=== PATIENT | female | born 1980 | race Caucasian/White ===

== ENCOUNTER → 2024-04-27 16:03 | Outpatient (REF) | payer BC, SELFPAY | LOC: RAD 16:03 | PROVIDERS: ATTENDING PHYSICIAN Podiatrist Foot & Ankle Surgery; FAMILY PHYSICIAN Nurse Practitioner Family | DX: M84.374A Stress fracture, right foot, initial encounter for fracture (principal) | CPT/HCPCS: 73630 ==

== ENCOUNTER 2025-04-22 04:28 | Emergency (ER) | payer BC, SELFPAY ==
[2025-04-22 04:32] VITALS: BP 139/82
--- NOTE | 2025-04-22 05:40 | ED.GENMED ---
History of Present Illness
General
Chief Complaint: Musculo-Skeletal Complaint
Source: patient
Time Seen by Provider: 04/22/25 05:09
History of Present Illness
History of Present Illness:
44-year-old female presents emergency room complaining of left-sided buttock pain. Patient began exercising with a personal secretary. She was doing exercises following some squats and kettle bells and began having pain in her left buttock. No
numbness or tingling in her lower extremity. No bowel or bladder dysfunction. Pain is not significant when she is laying or sitting and remaining still. But however when she has been still for some period of time and then begins moving again the
pain is most severe. After she 'loosens up' the pain lessened somewhat. No relief with ibuprofen, Tylenol and a lidocaine patch. Patient is in a wedding today and is concerned about her ability to function there with this pain. Patient denies
any abdominal pain. She denies any fever or chills. Patient is not concerned that she is as has been determined that she is not capable of getting .
Past History
Past History
ED Past Medical History: GERD
ED Past Surgical History: Appendectomy
Social History
Tobacco: Smoker
Alcohol: None
Drug: None
Personal:
Living: with family
Employment: Employed
Phy Exam
Physical Exam
Physical Exam:
General: Awake, Alert, Oriented X3. No acute distress. High BMI
Vitals: unremarkable
Head: Atraumatic
Eyes: Pupils equal, EOMI
Throat: Airway intact, no exudates
Neck: Trachea midline
Lungs: Clear and equal b/l
Heart: Regular rate, no murmurs
Abd: Soft, Nontender, No pulsatile mass
Back: No pain to percussion over the thoracic or lumbar spine. No pain to palpation of the paraspinal musculature. Positive pain to palpation over the left buttock
Neuro: Nonfocal
Skin: Warm, dry, no rash
Extremities: pulses equal b/l, no edema
Course
Orders/Labs/Results
Orders:
Orders
04/22/25 05:37
Cyclobenzaprine HCl [Flexeril] 10 mg PO NOW STA
Hip, Left 2-3 Views [CR Hip - LT w/wo Pel 2-3 Vw*] Urgent
Comment:
Reason For Exam: left hip pain
Include a pelvis x-ray?: Yes
Vital Signs
Initial and Last Documented VS:
Initial Vital Signs
Temp Pulse Resp BP Pulse Ox
98.5 F 86 20 139/82 100
04/22/25 04:32 04/22/25 04:32 04/22/25 04:32 04/22/25 04:32 04/22/25 04:32
Last Documented Vital Signs
Temp Pulse Resp BP Pulse Ox
98.5 F 86 20 139/82 100
04/22/25 04:32 04/22/25 04:32 04/22/25 04:32 04/22/25 04:32 04/22/25 05:43
MDM/Problems Addressed
Differential Diagnosis Includes:
Muscle spasm, fracture, radiculopathy
MDM/Problems Addressed:
Overall presentation seems most consistent with muscular spasm and irritation. Will obtain x-rays to make sure there is no bony abnormality.
No acute abnormality noted on x-ray. Patient will be discharged with Flexeril. No alcohol while using. Follow-up with your primary
*Pulse Oximetry
SaO2: 100
Oxygen Mode of Delivery: Room air
Patient hypoxic: no
*Critical Care Note
Total Time (30-74mins, 75-104mins- exclusive of procedures): Not Applicable
ED Attending Note
-
Portions of this chart may have been created with voice recognition software.� Occasional wrong word or��sound alike� substitutions may have occurred due to the inherent limitations of voice recognition software.
Discharge Plan
Departure
Patient Disposition: Home (Routine Discharge)
Date of Disposition: 04/22/25
Time of Disposition: 06:08
Patient with high blood pressure during this ER visit?: Yes
Condition: Good
Discharge Problem:
Muscle strain
Instructions: Muscle Strain (DC), BLOOD PRESSURE
Prescriptions:
New
cyclobenzaprine 10 mg tablet
10 mg PO TID PRN (Reason: muscle spasm/pain) Qty: 20 0RF
No Action
pantoprazole 40 MG tablet,delayed release (DR/EC)
40 mg PO DAILY
simvastatin 20 MG tablet
20 mg PO QPM
albuterol sulfate 1 PUFF HFA aerosol inhaler
1 puff inhalation R Q4HPRN PRN (Reason: sob)
magnesium 200 mg Tablet
200 mg PO QPM
Rx Instructions:
gummies
Vitamin D3
50,000 units PO QWEEK
iron
22 mg PO DAILY
Rx Instructions:
Iron Raw 22 mg/MILVIA CRU 22 mg
melatonin 10 mg Tablet
10 mg PO DAILY
ibuprofen [Advil] 200 mg Tablet
400 mg PO DAILYPRN PRN (Reason: pain)
Saline Nasal
2 spray inhalation
Referrals:
Mary Reaves CRNP [Family Provider, Family Practice]
Interventions
Interventions:
*Risk Screen - Suicide Last Done: 04/22/25 04:32
*General Assessment Last Done: 04/22/25 04:32
*Neglect/Abuse Screening Last Done: 04/22/25 04:32
*ED- Fall Risk Assessment Last Done: 04/22/25 04:32
*ED COVID-19 Vaccine History Last Done: 04/22/25 04:32
*ED Influenza Vaccine History Last Done: 04/22/25 04:32
Discharge Date and Time
Print Language: LATVIAN
[2025-04-22] MEDS: FLEXERIL 10 MG PO (05:42)
== END 2025-04-22 06:25 | disposition home or self-care (01) ==
LOC: EMR 04:28
PROVIDERS: EMERGENCY PHYSICIAN Emergency Medicine; FAMILY PHYSICIAN Nurse Practitioner Family
DX: S76.812A Strain of other specified muscles, fascia and tendons at thigh level, left thigh, initial encounter (principal); R03.0 Elevated blood-pressure reading, without diagnosis of hypertension; K21.9 Gastro-esophageal reflux disease without esophagitis; F17.200 Nicotine dependence, unspecified, uncomplicated; X50.0XXA Overexertion from strenuous movement or load, initial encounter; Y93.B3 Activity, free weights
CPT/HCPCS: 99283; 73502

== ENCOUNTER 2025-06-25 18:53 | Emergency (ER) | payer BC, SELFPAY ==
[2025-06-25 18:58] VITALS: BP 148/100
--- NOTE | 2025-06-25 19:59 | ED.GENMED ---
History of Present Illness
General
Chief Complaint: Abdominal Symptoms
Source: patient
Exam Limitations: none
Time Seen by Provider: 06/25/25 19:39
History of Present Illness
History of Present Illness:
44yoF with a history of Aly's esophagus, hyperlipidemia, and obesity on Zepbound presenting with her for evaluation of diarrhea. Symptoms began around 2 AM this morning. She woke up with abdominal cramping. She became nauseous and had
1 episode of vomiting. She then started having watery diarrhea and has had persistent diarrhea throughout the day. The last 3 episodes of diarrhea had bright red blood mixed in. She denies any fevers. Patient ate at a restaurant yesterday for
lunch and had Irish onion soup and a salad with beets. No sick contacts, recent travel, or recent antibiotic use. Prior abdominal surgeries include a left oophorectomy and an appendectomy. She does not take any blood thinners.
Past History
Past History
ED Past Medical History: GERD
ED Past Surgical History: Appendectomy
Social History
Tobacco: Smoker
Alcohol: None
Drug: None
Personal:
Living: with family
Employment: Employed
Phy Exam
General Physical Exam
General Presentation: well appearing and no apparent distress
General age: appears stated age
General Skin: warm and dry
General Habitus: normal
General Mental: alert
ENT Exam
ENT Exam: normocephalic
Pulmonary Exam
Pulmonary Exam: no respiratory distress
Gastrointestinal Exam
Gastrointestinal Exam: soft, non distended and other (Tenderness throughout lower abdomen. Abdomen soft, non-distended. No rebound or guarding.)
Rectal Exam: normal external exam (No visualized external hemorrhoids)
Stool: other (Stool sample provided which is mostly mucous with small amount of bright red blood mixed in)
Neurological Exam
Neurological Exam: alert
Katia Coma Scale
Eye Opening: Spontaneous
Verbal Response: Oriented
Motor Response: Obeys Commands
GCS Total Score: 15
Skin Exam
Skin Exam: normal color and warm/dry
Psychiatric Exam
Psychiatric Exam: normal mood/affect
Course
Orders/Labs/Results
Orders:
Orders
06/25/25 19:58
CT Abd/pelvis W Iv Cont Urgent
Comment:
Reason For Exam: lower abd pain, bloody stool
0.9% Sodium Chloride 1000 ml [Nss] 1,000 ml IV BOLUS
Test Result ONCE
06/25/25 20:26
Complete Blood Count/With Diff Urgent
Comprehensive Metabolic Panel Urgent
HCG, Serum Qualitative Screen Urgent
Lipase Urgent
Magnesium Urgent
06/25/25 22:24
Norovirus by PCR Urgent
RUI Source: Feces/Stool
Specimen Description:
Date Specimen was Collected: 06/25/25
Time Specimen was Collected: 22:23
Stool Culture Urgent
RUI Source: Feces/Stool
Specimen Description:
Date Specimen was Collected: 06/25/25
Time Specimen was Collected: 22:23
06/25/25 22:39
Amoxicillin 875 mg/Clav 125 mg [Augmentin 875 mg/125 mg] 1 tablet PO NOW STA
Abnormal Lab Results
06/25/25
20:26
MCHC 32.7 L g/dL
(33.0-37.0)
MPV 10.7 H fL
(7.4-10.4)
Absolute Neuts (auto) 7.2 H 10^3/uL
(1.4-6.5)
06/25/25 20:26
06/25/25 20:26
Vital Signs
Initial and Last Documented VS:
Initial Vital Signs
Temp Pulse Resp BP Pulse Ox
97.8 F 114 24 148/100 98
06/25/25 18:58 06/25/25 18:58 06/25/25 18:58 06/25/25 18:58 06/25/25 18:58
Last Documented Vital Signs
Temp Pulse Resp BP Pulse Ox
97.8 F 85 18 117/65 97
06/25/25 18:58 06/25/25 22:57 06/25/25 22:57 06/25/25 22:57 06/25/25 22:57
MDM/Problems Addressed
Differential Diagnosis Includes:
44yoF here with diarrhea that began last night. Last 3 episodes were bloody. Also c/o lower abd pain. HR 114 in triage. Patient well appearing in no distress. No signs of peritonitis on abdominal exam. Stool sample provided with small amount of
bright red blood mixed in. Differential diagnosis includes: hemorrhoidal bleeding, colitis, diverticulitis
Initial ED plan: Check abdominal labs, magnesium, stool studies, and CT abdomen. IV fluid bolus.
*Pulse Oximetry
SaO2: 98
Oxygen Mode of Delivery: Room air
Patient hypoxic: no
*Critical Care Note
Total Time (30-74mins, 75-104mins- exclusive of procedures): Not Applicable
Update Note
Update Note:
Labs unremarkable including normal hemoglobin, electrolytes, renal function. CT shows colitis from rectum to left side of transverse colon. This most likely is infectious per radiology although consider other differentials including inflammatory
bowel disease. No family history of IBD and she has no chronic GI issues making infectious etiology much more likely. Vitals remained stable throughout ED stay. No indication for hospitalization. Will cover with Augmentin. Supportive care
discussed. She was advised to follow-up with PCP and GI. ED return precautions reviewed. Patient in agreement with plan and she was discharged in stable condition.
ED Attending Note
-
Portions of this chart may have been created with voice recognition software.� Occasional wrong word or��sound alike� substitutions may have occurred due to the inherent limitations of voice recognition software.
Discharge Plan
Departure
Patient Disposition: Home (Routine Discharge)
Date of Disposition: 06/25/25
Time of Disposition: 22:42
Patient with high blood pressure during this ER visit?: No
Discharge Problem:
Acute colitis, Rectal bleeding, Lesion of left [place] kidney
Instructions: Colitis (DC)
Prescriptions:
New
amoxicillin-pot clavulanate 875-125 mg tablet
1 tab PO BID 7 Days Qty: 13 0RF
ondansetron 4 mg tablet,disintegrating
4 mg PO Q6H PRN (Reason: nausea and vomiting) Qty: 20 0RF
No Action
pantoprazole 40 MG tablet,delayed release (DR/EC)
40 mg PO DAILY
simvastatin 20 MG tablet
20 mg PO QPM
albuterol sulfate 1 PUFF HFA aerosol inhaler
1 puff inhalation R Q4HPRN PRN (Reason: sob)
magnesium 200 mg Tablet
200 mg PO QPM
Rx Instructions:
gummies
Vitamin D3
50,000 units PO QWEEK
iron
22 mg PO DAILY
Rx Instructions:
Iron Raw 22 mg/MILVIA CRU 22 mg
melatonin 10 mg Tablet
10 mg PO DAILY
ibuprofen [Advil] 200 mg Tablet
400 mg PO DAILYPRN PRN (Reason: pain)
Saline Nasal
2 spray inhalation
cyclobenzaprine 10 mg tablet
10 mg PO TID PRN (Reason: muscle spasm/pain) Qty: 20 0RF
Referrals:
Abbi Pisano CRNP [Family Provider, Internal Medicine]
Activity Restrictions/Additional Instructions:
Take antibiotics as prescribed. Take Zofran as needed for nausea. Drink plenty of fluids and eat a bland diet (bananas, rice, applesauce, toast).
The radiologist saw a lesion on your left kidney on today's CT scan. You will need an outpatient ultrasound for further evaluation of this.
Please call tomorrow to schedule a follow-up appointment with your family doctor and gastroenterology.
Return to the ER with any new or worsening symptoms including heavy bleeding, dizziness, passing out, or fever.
Interventions
Interventions:
*Risk Screen - Suicide Last Done: 06/25/25 18:58
*General Assessment Last Done: 06/25/25 20:16
*Neglect/Abuse Screening Last Done: 06/25/25 18:58
*ED COVID-19 Vaccine History Last Done: 06/25/25 20:16
*ED Influenza Vaccine History Last Done: 06/25/25 20:16
[facility] Fall Risk Assessment Tool Last Done: 06/25/25 20:16
*Nursing Disposition Last Done: 06/25/25 22:50
SF-Ekvpjb-Wnokjxbkpo Assessment Last Done: 06/25/25 20:16
Discharge Date and Time
Discharge Date/Time: 06/25/25 23:02
Print Language: INDONESIAN
[2025-06-25 20:20] VITALS: BP 130/80
[2025-06-25] MEDS: NSS 1000 IV (20:27)
[2025-06-25 20:38] LABS: Hematocrit 41.0 % (37.0-47.0); Hemoglobin 13.4 g/dL (12.0-16.0); Mean Corp Hgb Conc. 32.7 g/dL (33.0-37.0); Mean Corpuscular Volume 84.0 fL (81.0-99.0); Nucleated Red Blood Cells % 0 %; Platelet Count 302 10^3/uL (130-400); Red Cell Dist. Width 14.3 % (11.5-14.5)
[2025-06-25 20:54] LABS: HCG, Serum Qualitative Screen Negative
[2025-06-25 21:00] VITALS: BP 124/78
[2025-06-25 21:02] LABS: ALT (SGPT) 20 U/L (0-35); AST (SGOT) 21 U/L (14-36); Albumin 4.6 g/dl (3.5-5.0); Alkaline Phosphatase 61 U/L (38-126); Blood Urea Nitrogen 9 mg/dl (7-17); Calcium 9.3 mg/dl (8.4-10.2); Carbon Dioxide 26 mmol/L (22-30); Chloride 104 mmol/L (98-107); Glucose 89 mg/dl (70-99); Lipase 133 U/L (23-300); Magnesium 2.0 mg/dl (1.6-2.3); Potassium 3.9 mmol/L (3.5-5.1); Sodium 137 mmol/L (135-145); Total Protein 7.1 g/dl (6.3-8.2); eGFR > 60.00
[2025-06-25] MEDS: AUGMENTIN 875 MG/125 MG 1 TABLET PO (22:53)
[2025-06-25 22:56] VITALS: BP 117/65
[2025-06-25 22:57] VITALS: BP 117/65
== END 2025-06-25 23:02 | disposition home or self-care (01) ==
LOC: EMR 18:53
PROVIDERS: Physician Assistant; EMERGENCY PHYSICIAN Student in an Organized Health Care Education/Training Program; FAMILY PHYSICIAN Nurse Practitioner Family
DX: K52.9 Noninfective gastroenteritis and colitis, unspecified (principal); N28.9 Disorder of kidney and ureter, unspecified; E66.9 Obesity, unspecified; E78.00 Pure hypercholesterolemia, unspecified; F17.200 Nicotine dependence, unspecified, uncomplicated; Z87.19 Personal history of other diseases of the digestive system; Z90.49 Acquired absence of other specified parts of digestive tract; Z90.721 Acquired absence of ovaries, unilateral; Z90.79 Acquired absence of other genital organ(s)
CPT/HCPCS: 99284; 96360; 74177; 80053; 83690; 83735; 84703; 85025; 87045; 87046; 87427; 87798; Q9967